=== PATIENT | male | born 1980 | race Caucasian/White ===

== ENCOUNTER 2021-01-05 08:00 | Outpatient (RCR) | payer MEDICARE, SELFPAY | END 2021-03-08 23:59 | LOC: IMMUN 08:00 | PROVIDERS: Referring Provider Family Medicine; Visit Provider Family Medicine | DX: Z23 Encounter for immunization (principal) | CPT/HCPCS: 0001A; 0002A; 91300 ==

== ENCOUNTER 2022-02-28 08:10 | Emergency (ER) | payer MEDICAID, SELFPAY ==
[2022-02-28 08:11] VITALS: BP 148/92; PULSE 97; RESP 15; TEMP 36.4; O2SAT 98; BMI 23.5
[2022-02-28 08:30] VITALS: RESP 16
--- NOTE | 2022-02-28 08:34 | EDS_ITS ---
HPI HPI - GI History of Present Illness Chief Complaint: Abd Pain Informant: patient Narrative Narrative: Patient presents for evaluation reported reducible inguinal hernia. On and off for the past year more frequent. Last time was 2 days ago states he is able to reduce this. He states he was walking when he noted this at times was on the lawn more for prolonged period time will noted the bulge. No nausea or vomiting. Normal bowel movements. Has never seen a physician or specialist for this. Denies any significant past medical history. On Zyrtec daily. No surgeries in the past. Prior similar symptoms: Yes PFSH PFSH Medical History no medical history Home Medications cetirizine [Zyrtec] 5 mg PO DAILY 02/28/22 [History Last Taken Unknown] Allergy/AdvReac Type Severity Reaction Status Date / Time No Known Allergies Allergy Verified 02/28/22 08:12 Family History no significant family his Surgical History no surgical history Social History Smoking Status: Never smoker ROS ROS ED Constitutional Constitutional ED: Denies chills, fever(s) or sweats Eyes Eyes: Denies change in vision ENT ENT ED: Denies dysphagia or sore throat Cardiovascular Cardiovascular: Denies chest pain, leg edema, palpitations or racing heartbeat Respiratory/Chest Respiratory/Chest: Denies cough, dyspnea or dyspnea on exertion Gastrointestinal Gastrointestinal: Reports other Details: Hernia ; Denies abdominal pain, diarrh ea, nausea or vomiting Genitourinary Genitourinary ED: Denies dysuria, hematuria or urinary frequency Musculoskeletal Musculoskeletal: Denies back pain, extremity pain or neck pain Integumentary Denies rash or wounds Neurologic Neurologic: Denies headache(s), paresthesias or weakness EXAM Physical Exam Const Vital Signs: 02/28/22 08:11 Temperature 97.5 F L Temperature Source Temporal Pulse Rate 97 Respiratory Rate 15 Blood Pressure 148/92 H Blood Pressure Mean 110 Pulse Ox 98 Oxygen Delivery Method Room Air Positive well nourished and well developed General Appearance ED: well developed and NAD HEENT Reports moist mucous membranes normocephalic and atraumatic Eyes PERRL, EOMs intact bilaterally and conjunctivae normal General Eye ED: Yes normal appearance of both eyes Neck no lymphadenopathy and supple General: Negative for tenderness Chest Wall Chest: Negative for tenderness Resp normal respiratory effort and normal air movement Effort and Inspection: symmetric chest movement; Negative for respiratory distress Cardio regular rate, regular rhythm and no murmurs Peripheral Pulses: pulses 2+ throughout GI normal to inspection, nondistended, normoactive bowel sounds and non-tender Palpation: Negative for guarding or rebound tenderness present Narrative: Nontender testicles, there is defect noted on left inguinal canal. No current bulging or tenderness. Back/Spine no CVA tenderness and no thoracic nor lumbar tenderness Extremity normal to inspection General Extremety ED: Negative for edema or tenderness General Extremity: Negative for edema Neuro oriented x3 and no sensory deficits noted Sensorium / Orientation: awake and alert Skin no rashes or lesions noted and no wounds MDM MDM MDM Narrative Medical decision making narrative: Patient history exam concerns for reducible inguinal hernia. Does not have any symptoms currently. Discussed avoiding heavy lifting not more than 10 pounds. Discussed to continue to reduce if reoccurs if he is unable to he needs to come immediately to the ED. Otherwise he is given follow-up with surgery as an outpatient. All questions were answered. Discharge Plan Triage Chief Complaint: Abd Pain ED Provider: Liam Mello Dx/Rx/DC Orders Clinical Impression: Reducible inguinal hernia Instructions: What Is a Hernia?, ED Hernia (Adult) Prescriptions: No Action cetirizine [Zyrtec] 5 mg Tablet 5 mg PO DAILY RF: 0 Primary Care Provider: Care Physician,No Primary Referrals: Breonna Almodovar MD [STAFF PHYSICIAN] - 1 Week Care Physician,No Primary [Primary Care Provider] - Activity Restrictions/Additional Instructions: You have a indirect inguinal hernia on the left side that is reducible. Follow- up with surgery for discussion of definitive treatment as an outpatient. Return if worsening symptoms and unable to reduce. Disposition Disposition: Home, Self Care
== END 2022-02-28 08:40 | disposition home or self-care (01) ==
LOC: ED 08:38
PROVIDERS: Emergency Provider Emergency Medicine; Visit Provider Emergency Medicine
DX: K40.90 Unilateral inguinal hernia, without obstruction or gangrene, not specified as recurrent (principal)
CPT/HCPCS: 99282

== ENCOUNTER 2022-03-14 10:32 | Day surgery (SDC) | payer MEDICAID, SELFPAY ==
[2022-03-14 11:07] VITALS: BP 118/86; PULSE 79; RESP 18; TEMP 36.6; O2SAT 100; BMI 20.9
--- NOTE | 2022-03-14 11:07 | PCM.HP.BLA ---
History and Physical Date of Admission: 03/14/22 Date of Service: 03/02/22 MR#:[id number]:[id number]: CUCO MORGANNRep #:[id number] Provider:Kyle Contreras/Sex: 41/M [facility] [place]WSAStatus:Signed Intake Vital Signs 03/02/22 08:42 Height 5 ft 7 in Weight: 131 lb 4 oz BMI 20.5 BP 114/80 Blood Pressure Location Rt brachial Position Sitting Respiration 18 Pulse 84 Pulse Source Monitor Temp 97.4 F L Temp Source Temporal Pulse Oximetry (%) 99 Oxygen Delivery Method room air Intake Visit Reasons: ED 02/28 INGUINAL HERNIA Chief Complaint: Left inguinal hernia 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 Accompanied by: Father Is patient in pain?: No Allergies No Known Allergies Allergy (Verified 03/02/22 08:43) Medications cetirizine 5 mg tablet 5 mg PO DAILY 03/02/22 [History Confirmed 03/02/22] PFSH Medical History (Updated 03/02/22 @ 08:41 by Jesica Quarles) Reducible inguinal hernia Surgical History (Updated 03/02/22 @ 08:42 by Jesica Quarles) Hx of thumb surgery Family History (Updated 03/02/22 @ 08:44 by Jesica Quarles) Father Heart disease Hypertension High cholesterol Cancer skin cancer Social History (Updated 03/02/22 @ 08:42 by Jesica Quarles) Smoking Status: Never smoker alcohol intake: never substance use type: does not use HPI HPI HPI: CUCO MORGAN, is a 41 M who presents to the office today for left inguinal hernia. Pt states he has had it for about 1 year, but in the last 2 weeks he has need to reduce it more often- about 6 times. Pt c/o pain/discomfort at left groin with lifting on occasion. Pt denies any abd surgery. ROS General General: No weight change, appetite, fatigue, colon cancer or breast cancer HEENT HEENT: No difficulty swallowing, eye injury, eye surgery, swollen glands or hoarseness Endo Endocrine: No thyroid disease, diabetes mellitus, thyroid cancer, Hair loss, heat intolerance or cold intolerance Skin Skin: No rash or changing moles Musc Musculoskeletal: No back problems, arthritis, rheumatoid arthritis, gout or joint pain Cardio Cardiovascular: No murmur, pacemaker, heart disease, atrial fibrillation, high blood pressure, heart attack, heart stent, palpitations, shortness of breat with exertion or chest pain Psych Psychiatric: No depression, anxiety or hearing voices Resp Respiratory: No shortness of breath, No sleep apnea, No cough, No COPD, No asthma, No emphysema and No wheezing Gastro Gastrointestinal: No abdominal pain, No nausea or vomiting, No diarrhea, No constipation, No blood in stool, No acid reflux, No hemorrhoids, No ulcers, No gallbladder problem and No black,tarry stools Terell Hematologic: No blood thinners, No blood disorders, No bleeding, No anemia and No blood clots Neuro Neurologic: No abnormal speech and No confusion Exam Const General: cooperative, healthy appearing, comfortable and no acute distress Neck Neck: normal visual inspection Resp Effort & Inspection: normal respiratory effort Cardio Rate: regular rate GI Inspection: non-distended Palpation: soft, no guarding, hernia (left inguinal on exam-reducible, no hernia on right inguinal) and nontender Skin General: no rashes or lesions noted Neuro General: patient oriented x3 Psych Affect: normal affect Assessment and Plan Assessment and Plan (1) Reducible inguinal hernia: Status: Acute Comment: Left Plan - Dr. Breonna Almodovar MD: Plan to do a laparoscopic left inguinal hernia repair with mesh. Reviewed the procedure with the patient including the risks, including but not limited to infection, bleeding, paresthesia, chronic pain, injury to small bowel or contents of the spermatic cord, and recurrence. All questions were answered. Coding Level of Care Code Off vis,new,level 3 Diagnoses Reducible inguinal hernia K40.90 03/06/222017<Electronically signed by Breonna Almodovar MD>Date Breonna Almodovar MD
[2022-03-14] MEDS: Lactated Ringers 1,000 ML 15 ML IV (11:15)
[2022-03-14] MEDS: Cefazolin 2 GM in 0.9% Normal Saline 100 ML IV (12:04)
[2022-03-14] MEDS: Bupivacaine Mpf 0.5% 30 ML VIAL (13:25)
--- NOTE | 2022-03-14 13:25 | OP.PCM_ITS ---
Report of Operation Date of Procedure: 03/14/22 Pre-Operative Diagnosis: Left inguinal hernia Post-Operative Diagnosis: Left direct inguinal hernia Surgery/Procedure Performed:: Laparoscopic left inguinal hernia repair with mesh Surgeon: Breonna Almodovar web content director: Barbara Mock Type of Anesthesia: General/Supplemental Anesthesiologist: Tomy Mckeon Special Medications: Ancef 2 g IV x1 Specimen's removed: None Estimated Blood Loss (mL): < 10 cc Description of Procedure: Indications: 41-year-old male presented with left inguinal hernia which was symptomatic. Laparoscopic left inguinal hernia repair with mesh was elected patient was agreeable. Description of procedure: Patient was brought to operating room placed supine operative table. Timeout was completed verifying correct patient, procedure, site, positioning, special, prior to beginning procedure. General anesthesia was induced. Mcdonald catheter was placed. Patient's arms were tucked and padded appropriately. Midline supraumbilical incision was made with a 15 blade scalpel. The fascia was elevated and incised. Entry into the abdomen was confirmed visually. The Suero trocar was placed. Laparoscope was placed. Verifying no injury during initial trocar placement. Patient was placed in Trendelenburg position. Two 5 mm trochars were placed lateral to the rectus sheath under direct visualization. Both the inguinal regions were inspected and left direct hernia was seen; no hernia seen on the right. The median umbilical ligament was divided sharply with electrocautery. Peritoneum was incised with the endoscopic scissors along a line 2 cm above the superior edge of the hernia defect extending from the median umbilical ligament to anterior superior iliac spine. Peritoneal flap was mobilized inferiorly using blunt and sharp dissection. The inferior epigastric vessels were exposed and symphysis pubis and identified. Checo's ligament was identified. Dissection was continued inferiorly to the iliopubic track with care taken to avoid injury to the femoral branch of the genitofemoral nerve and lateral femoral cutaneous nerve. The cord structures were parietalized. The indirect hernia sac was noted and mobilized from the cord structures and reduced into the peritoneal cavity. A medium size Bard 3D max mesh left was used. The mesh was rolled longitudinally into a compact cylinder and passed through the trocar. The cylinder was placed along the inferior aspect of the working space and unrolled into place to completely cover the direct, indirect and femoral spaces. The mesh was secured in place medially to Checo's ligament using the pro- tacker and secure strap to the anterior abdominal wall as well as to the anterior abdominal wall. Care was taken to avoid the inferolateral triangle containing iliac vessels and genital nerves. After ensuring adequate hemostasis, the trochars were removed and pneumoperitoneum allowed to escape. The supraumbilical trocar incision was closed with a 0 Vicryl figure of 8 suture. The skin was closed with 4-0 Monocryl interrupted sutures and Steri-Strips. Patient's testicles are also confirmed in the scrotum bilaterally. Patient tolerated procedure well was taken to the postanesthesia care unit in stable condition. Grafts/Implants Used: Left medium Bard 3D max lot [id number] Complications none
--- NOTE | 2022-03-14 13:29 | EX.PCM.DISCH ---
Discharge Instructions Diet Discharge Diet: Light diet - advance as tolerated Activity Discharge Activity: May Not Drive (while taking narcotic pain medications.) May shower in (days): 1 Lifting Restrictions: no lifting >20 lbs x 2 wks, no strenuous exercise for 4 wks Dressing / Incision Call your doctor if your incision/area has: Continuous Slow Oozing, Sudden Increased Bleeding, Increased Pain/ Swelling, Increased Redness, Foul Smelling Discharge and Swelling at the incision site Call your doctor if you observe: Fever of 101 or Higher Remove Dressing in: 2 days Cleanse incision/area with: Soap & Water Additional Dressing/Incision Instructions:: Steri-Strips will fall off in 7 to 10 days, if they do not fall off okay to remove after 10 days. Recommend scrotal support for 1 to 2 weeks, boxer briefs or briefs versus boxers. Follow Up Care Please Follow Up With: Breonna Almodovar MD When: Call the office for a follow-up appointment 2 weeks; after 5 PM and on the weekends call [phone] with any concerns. Test Results: Test results from this visit will be discussed in further detail at your follow-up appointment, if applicable. Discharge Plan Admission Attending Provider: Breonna Almodovar Primary Care Provider: Care Physician,Aurelia Primary Discharge Orders/Prescriptions Prescriptions: New hydrocodone-acetaminophen 5-325 mg tablet 1 - 2 tab PO Q6H PRN (Reason: pain) 3 Days Qty: 15 RF: 0 Continued Zyrtec 10 mg Capsule 10 mg PO DAILY RF: 0 Referrals / Follow Up: Care Physician,No Primary [Primary Care Provider] - Disposition Disposition (needs filled in before D/C Order can be placed): Home, Self Care
[2022-03-14 13:40] VITALS: BP 118/86; PULSE 73; RESP 16; TEMP 36.3; O2SAT 95
[2022-03-14 13:45] VITALS: BP 112/81; BP 118/86; PULSE 66; RESP 16; O2SAT 96
[2022-03-14 14:00] VITALS: BP 103/69; BP 118/86; PULSE 56; RESP 16; O2SAT 97
[2022-03-14 14:15] VITALS: BP 102/75; BP 118/86; PULSE 61; RESP 16; TEMP 36.6; O2SAT 99
[2022-03-14] MEDS: HYDROcodone Bitartrate/Apap 5/325 Tablet PO (14:50)
[2022-03-14 15:15] VITALS: BP 102/68; BP 118/86; PULSE 78; RESP 16; TEMP 36.7; O2SAT 99
== END 2022-03-14 15:28 | disposition home or self-care (01) ==
LOC: SDC 10:33 → AC 10:42
PROVIDERS: Referring Provider Surgery; Visit Provider Surgery
PROC: (CPT 49650; principal; 2022-03-14 11:40)
DX: K40.90 Unilateral inguinal hernia, without obstruction or gangrene, not specified as recurrent (principal)
CPT/HCPCS: 49650; 00750; J7120; C1781; J2405

== ENCOUNTER → 2022-03-16 | Outpatient (CLI) | payer MEDICAID, SELFPAY ==
--- NOTE | 2022-03-16 16:13 | CT_ITS ---
INDICATION: LEFT LOWER QUADRANT PAIN EXAMINATION: CT Abdomen And Pelvis W/ Contrast Injection TECHNIQUE: Helically acquired images were obtained of the abdomen and pelvis after IV contrast. A radiation dose optimization technique was used for this scan. IV Contrast dosage and agent: Oral and amp; IV Gastrografin and amp; 100mL [id number]-370 Oral contrast: None. COMPARISON: None. FINDINGS: Visualized lung bases: Unremarkable Liver: Unremarkable Gallbladder: Unremarkable Spleen: Unremarkable Pancreas: Unremarkable Adrenal Glands: Unremarkable Kidneys: Unremarkable Vasculature: Unremarkable GI Tract: Postoperative changes status post left inguinal hernia repair. There is residual fluid within the left inguinal canal. There is pneumoperitoneum. Mild circumferential rectal wall thickening. Lymphadenopathy: None Peritoneum: No ascites. Bladder: BANEGAS catheter in place. Reproductive organs: The prostate is moderately enlarged. Bones/Soft tissues: No suspicious osseous or soft tissue lesions CT/Abdomen/Pelvis WITH Contrast IMPRESSION: Postoperative changes status post left inguinal hernia repair with pneumoperitoneum and residual fluid within the left inguinal canal. Consider short-term follow-up scan to document resolution of free air. Mild circumferential rectal wall thickening. This could represent proctitis in the correct clinical setting. Moderate prostatomegaly. Correlate with PSA levels. Electronically Signed: Hector Rebolledo MD at 19:54 EDT ,
== END | disposition home or self-care (01) ==
LOC: CT 16:10
PROVIDERS: Visit Provider Surgery
DX: R10.32 Left lower quadrant pain (principal); N40.0 Benign prostatic hyperplasia without lower urinary tract symptoms
CPT/HCPCS: 74177; Q9967

== ENCOUNTER 2022-08-18 08:01 | Day surgery (SDC) | payer BC, MEDICAID, SELFPAY ==
[2022-08-18] VITALS (9 sets, daily range): BP systolic 98–124; BP diastolic 59–85; PULSE 71–85; RESP 16–18; TEMP 36.3–36.8; O2SAT 96–100; BMI 21.7
[2022-08-18] MEDS: Lactated Ringers 1,000 ML 15 ML IV (08:20)
--- NOTE | 2022-08-18 08:34 | HP.PCM_ITS ---
History and Physical Date of Admission: 08/18/22 Date of Service:? 08/04/22 MR#: [id number] Acct: [id number] Name:CUCO RAYMOND Rep #: [id number] : 1980 ? ? Provider: Dr. Breonna Almodovar MD Age/Sex:? 42/M ? ? Location: [facility] Status: Signed Intake Vital Signs ? 08/04/2209:20 BP 148/83 H Blood Pressure Location Rt brachial Position Sitting Respiration 16 Pulse 82 Pulse Source Monitor Temp 97.5 F L Temp Source Temporal Pulse Oximetry (%) 99 Oxygen Delivery Method room air Intake Visit Reasons:?PAIN AT HERNIA SURGERY SITE Chief Complaint: Right groin pain Regulator Tester Required: No Is patient in pain?: No Allergies No Known Allergies Allergy (Verified 08/04/22 09:22) Medications cetirizine 10 mg capsule (Zyrtec) 10 mg PO DAILY 03/07/22 [History Confirmed 08/04/22] PFSH Medical History?(Updated 08/04/22 @ 11:[address] Breonna Almodovar MD) Non-smoker Reducible inguinal hernia Surgical History?(Updated 08/04/22 @ 11:[address] Breonna Almodovar MD) History of inguinal hernia repair Hx of thumb surgery Family History? Father Heart disease Hypertension High cholesterol Cancer ?? ? skin cancer Social History? Smoking Status:? Never smoker alcohol intake:? never substance use type:? does not use HPI HPI HPI: 42-year-old male presents due to right inguinal pain/bulge.? Patient states about a month ago he noticed right groin pain/bulge.? Patient did just recently have a left laparoscopic inguinal hernia with mesh repair in March 2022.? Patient states his right groin pain is worse with sneezing nor heavy lifting or towards the end of the day.? Patient does report feeling starting of a bulge. ROS General General: No weight change, appetite, fatigue, colon cancer, breast cancer or weakness HEENT HEENT: No difficulty swallowing, eye injury, eye surgery, swollen glands or hoarseness Endo Endocrine: No thyroid disease, diabetes mellitus, thyroid cancer, Hair loss, heat intolerance or cold intolerance Skin Skin: No rash or changing moles Musc Musculoskeletal: No back problems, arthritis, rheumatoid arthritis, gout or joint pain Cardio Cardiovascular: No murmur, pacemaker, heart disease, atrial fibrillation, high blood pressure, heart attack, heart stent, palpitations, shortness of breat with exertion or chest pain Psych Psychiatric: No depression, anxiety or hearing voices Resp Respiratory: No shortness of breath, No sleep apnea, No cough, No COPD, No asthma, No emphysema and No wheezing Gastro Gastrointestinal: No abdominal pain, No nausea or vomiting, No diarrhea, No constipation, No blood in stool, No acid reflux, No hemorrhoids, No ulcers, No gallbladder problem and No black,tarry stools Etrell Hematologic: No blood thinners, No blood disorders, No bleeding, No anemia and No blood clots Neuro Neurologic: No system reviewed and no additional complaints, except as documented, No as per HPI, No abnormal gait, No abnormal hearing, No abnormal movements, No abnormal speech, No behavioral changes, No burning sensations, No confusion, No convulsions, No disequilibrium, No dizziness, No localized weakness, No frequent falls, No headache(s), No lack of coordination, No loss of vision, No memory loss, No numbness, No other visual disturbances, No radicular pain, No restless legs, No sensory deficit, No syncope, No tingling, No t remor(s), No weakness and No other Exam Const General: cooperative, healthy appearing and no acute distress [facility] Head: normal to inspection Resp Effort & Inspection: normal respiratory effort Cardio Rate: regular rate GI Inspection: non-distended Palpation: soft, no guarding, no hernias and nontender Other: Left inguinal region no hernia on exam-- postoperative seroma from March resolved Right inguinal region hernia on exam self reduces, tenderness palpation Skin General: no rashes or lesions noted Neuro General: patient oriented x3 Extrem General: no clubbing, cyanosis or edema Psych Affect: normal affect Assessment and Plan Assessment and Plan (1) Right inguinal hernia: ?Status:?Acute (2) History of inguinal hernia repair: ?Status:?Acute ?Comment: laparoscopic left--03/14/22 Plan Patient previously did not have any discomfort in the right groin or hernia seen at time of laparoscopic left inguinal hernia repair.? Patient states the pain started about a month ago and he does feel starting of a bulge.? There is a bulge on exam on the right as well.? No issues on the left. Plan to do a laparoscopic right inguinal hernia repair with mesh. Reviewed the procedure with the patient including the risks, including but not limited to infection, bleeding, paresthesia, chronic pain, injury to small bowel or contents of the spermatic cord, and recurrence. All questions were answered. Breonna Almodovar M.D. Pager: [phone] [facility] [address] [place] [address], [address] [place] [address] Office: [phone] Coding Level of Care Code Off vis,est,level 4 Diagnoses Right inguinal hernia? K40.90 History of inguinal hernia repair? Z98.890; Z87.19 08/07/22 1243 <Electronically signed by Breonna Almodovar MD> Date Breonna Almodovar MD
[2022-08-18] MEDS: Cefazolin 2 GM in 0.9% Normal Saline 100 ML IV (10:20)
[2022-08-18] MEDS: Bupivacaine 0.25% 30 ML Vial (11:37)
--- NOTE | 2022-08-18 11:37 | OP.PCM_ITS ---
Report of Operation Date of Procedure: 08/18/22 Pre-Operative Diagnosis: right inguinal hernia Post-Operative Diagnosis: same Surgeon: Breonna Almodovar construction specialist: Fabiola Hillman Anesthesiologist: Pako Willis Special Medications: Ancef 2 grams IV x1 Specimen's removed: none Estimated Blood Loss (mL): minimal Description of Procedure: Description of procedure: Patient was brought to operating room placed supine operative table.? Timeout was completed verifying correct patient, procedure, site, positioning, special, prior to beginning procedure.? General anesthesia was induced.? Patient's arms were tucked and padded appropriately. Midline supraumbilical incision was made with a 15 blade scalpel.? The fascia was elevated and incised.? Entry into the abdomen was confirmed visually.? The Suero trocar was placed.? Laparoscope was placed.? Verifying no injury during initial trocar placement.? Patient was placed in Trendelenburg position.? Two 5 mm trochars were placed lateral to the rectus sheath under direct visualization.? Both the inguinal regions were inspected and right direct hernia was seen; no hernia seen on the left. The median umbilical ligament was divided sharply with electrocautery.? Peritoneum was incised with the endoscopic scissors along a line 2 cm above the superior edge of the hernia defect extending from the median umbilical ligament to anterior superior iliac spine.? Peritoneal flap was mobilized inferiorly using blunt and sharp dissection- direct hernia and preperitoneal lipoma was removed.? The inferior epigastric vessels were exposed and symphysis pubis and identified.? Checo's ligament was identified.? Dissection was continued inferiorly to the iliopubic tract with care taken to avoid injury to the femoral branch of the genitofemoral nerve and lateral femoral cutaneous nerve.? The no indirect hernia sac was noted and peritoneal flap was mobilized from the cord structures and reduced into the peritoneal cavity.? A medium size Bard 3D max mesh right was used.? The mesh was rolled longitudinally into a compact cylinder and passed through the trocar.? The cylinder was placed along the inferior aspect of the working space and unrolled into place to completely cover the direct, indirect and femoral spaces.? The mesh was secured in place medially to Checo's ligament and to the anterior abdominal wall using the Securestrap.? Care was taken to avoid the inferolateral triangle containing iliac vessels and genital nerves.? After ensuring adequate hemostasis, the trochars were removed and pneumoperitoneum allowed to escape.? The supraumbilical trocar incision was closed with a 0 Vicryl figure of eight suture.? The skin was closed with 4-0 Monocryl interrupted sutures and Steri-Strips.? Patient's testicles are also confirmed in the scrotum bilaterally. Patient tolerated procedure well was taken to the postanesthesia care unit in stable condition. Grafts/Implants Used: Right medium Bard 3D max lot [id number]
--- NOTE | 2022-08-18 11:51 | DCINST_ITS ---
Discharge Instructions Diet Discharge Diet: Light diet - advance as tolerated Activity Discharge Activity: May Not Drive (while taking narcotic pain medications.) May shower in (days): 1 Lifting Restrictions: no lifting >20 lbs x 2 wks, no strenuous exercise for 4 wks Dressing / Incision Call your doctor if your incision/area has: Continuous Slow Oozing, Sudden Increased Bleeding, Increased Pain/ Swelling, Increased Redness, Foul Smelling Discharge and Swelling at the incision site Call your doctor if you observe: Fever of 101 or Higher Remove Dressing in: 2 days Cleanse incision/area with: Soap & Water Additional Dressing/Incision Instructions:: Steri-Strips will fall off in 7 to 10 days, if they do not fall off okay to remove after 10 days. Follow Up Care Please Follow Up With: Breonna Almodovar MD When: Call the office for a follow-up appointment 2 weeks; after 5 PM and on the weekends call [phone] with any concerns. Test Results: Test results from this visit will be discussed in further detail at your follow- up appointment, if applicable. Discharge Plan Admission Attending Provider: Breonna Almodovar Primary Care Provider: Care PhysicianAurelia Primary Instructions Additional Instructions / Restrictions: Okay to take ibuprofen 400-600 mg PO q6hr PRN along with the Percocet. Avoid Tylenol since there is already Tylenol in the Percocet. Take all pain meds with food. Percocet can cause constipation recommend taking daily stool softener (i.e. Colace/docusate) while taking the pain meds. Recommend starting some MiraLAX tomorrow if no bowel movement. If still no bowel movement following day recommend taking additional laxatives/MiraLAX or Dulcolax Discharge Orders/Prescriptions Prescriptions: New oxycodone-acetaminophen 5-325 mg tablet 1 - 2 tab PO Q6H PRN (Reason: pain) 3 Days Qty: 14 0RF Continued Zyrtec 10 mg Capsule 10 mg PO DAILY Referrals / Follow Up: Care PhysicianAurelia Primary [Primary Care Provider] - Disposition Disposition (needs filled in before D/C Order can be placed): Home, Self Care
[2022-08-18] MEDS: oxyCODONE 5 MG Tablet PO ×2 (13:19→14:03)
[2022-08-18] MEDS: Acetaminophen 325 MG Tablet PO ×2 (13:19→14:04)
--- NOTE | 2022-08-18 15:15 | SUR.PHASEII ---
PT VOIDED 450, BLADDER SCANNED FOR NOTHING. OK PER DR NELSON TO D/ C
== END 2022-08-18 15:16 | disposition home or self-care (01) ==
LOC: SDC 08:03 → AC 08:04
PROVIDERS: Visit Provider Surgery
PROC: (CPT 49650; principal; 2022-08-18 09:15)
DX: K40.90 Unilateral inguinal hernia, without obstruction or gangrene, not specified as recurrent (principal)
CPT/HCPCS: 49650; 00840; J7120; C1781; J2405

== ENCOUNTER 2024-12-01 05:47 | Emergency (ER) | payer OTHER, BC, SELFPAY ==
[2024-12-01 05:48] VITALS: BP 141/77; PULSE 70; RESP 18; TEMP 36.4; O2SAT 100; BMI 26.6
--- NOTE | 2024-12-01 06:12 | RAD_ITS ---
PROCEDURE: LUMBAR SPINE 2 OR 3 VIEWS REASON FOR EXAM: Pain TECHNIQUE: 3 view(s) of the lumbar spine COMPARISON: None. FINDINGS: 5 [id number] lumbar vertebral type bodies. No fracture or malalignment. Some straightening of the lordosis may represent degree of spasm or positioning. Disc spaces appear within limits. RAD/Lumbar Spine 2 or 3 Views IMPRESSION: No fracture or malalignment. Some straightening of the lordosis may represent degree of spasm or positioning.. Reading Location: [id number]
--- NOTE | 2024-12-01 06:19 | EDS_ITS ---
HPI History of Present Illness Chief Complaint: Back Narrative Narrative: Recurrent back pain rating down his right leg this morning. August work injury stepping down ladder second step. Pain in his back rating down his leg. He went through occupational health with restrictions he went through physical therapy was cleared back to work a month ago. While at work this past started noting mild right lower back pain again. Today walking down 1 step he felt sharp pain similar to August however this is worsened. No loss of bowel or bladder control. No medications taken. Denies any allergies. Denies history of gastric ulcers or kidney injury. Prior similar symptoms: Yes PFSH [facility] Medical History Strain of muscle, fascia and tendon of lower back, sequela Non-smoker Reducible inguinal hernia Home Medications ?Medication ?Instructions ?Recorded ?Last Taken ?Type diazepam 5 mg tablet 5 mg PO Q8 PRN Muscle Spasm #20 12/01/24 Unknown Rx tabs hydrocodone-acetaminophen 5-325mg 1 tab PO Q6H PRN PRN Pain 3 days 12/01/24 Unknown Rx 5mg-325mg #12 TABLETS ibuprofen 600 mg tablet 600 mg PO Q6H PRN PRN pain # 20 12/01/24 Unknown Rx TABLETS prednisone 20 mg tablet 60 mg (3 x 20 mg) PO DAILY # 15 12/01/24 Unknown Rx TABLETS Allergy/AdvReac Type Severity Reaction Status Date / Time No Known Allergies Allergy Verified 12/01/24 05:49 Family History Father Heart disease Hypertension High cholesterol Cancer skin cancer Surgical History History of right inguinal hernia repair History of inguinal hernia repair Hx of thumb surgery Social History Smoking Status: Never smoker alcohol intake: never substance use type: does not use ROS ROS ED Constitutional Constitutional ED: Denies chills, fever(s) or sweats ENT ENT ED: Denies sore throat Cardiovascular Cardiovascular: Denies chest pain, leg edema, palpitations or racing heartbeat Respiratory/Chest Respiratory/Chest: Denies cough, dyspnea or dyspnea on exertion Gastrointestinal Gastrointestinal: Denies abdominal pain, diarrhea, nausea or vomiting Genitourinary Genitourinary ED: Denies dysuria, hematuria or urinary frequency Musculoskeletal Musculoskeletal: Reports back pain; Denies extremity pain or neck pain Integumentary Denies rash or wounds Neurologic Neurologic: Denies headache(s), paresthesias or weakness EXAM Physical Exam Const Vital Signs: 12/01/24 05:48 Temperature 97.6 F L Temperature Source Oral Pulse Rate 70 Respiratory Rate 18 Blood Pressure 141/77 H Blood Pressure Mean 98 Pulse Ox 100 Oxygen Delivery Method Room Air Positive well nourished and well developed General Appearance ED: well developed and NAD HEENT Reports moist mucous membranes normocephalic and atraumatic Eyes General Eye ED: Yes normal appearance of both eyes Neck full ROM Chest Wall Chest: Negative for tenderness Resp normal respiratory effort and normal air movement Effort and Inspection: symmetric chest movement; Negative for respiratory distress Cardio regular rate, regular rhythm and no murmurs Peripheral Pulses: pulses 2+ throughout GI normal to inspection, nondistended, normoactive bowel sounds and non-tender Palpation: Negative for guarding or rebound tenderness present Back/Spine Back/Spine Narrative: Tender palpation midline L5-S1. Straight leg test was negative bilaterally. 1+ patellar reflex bilaterally. Extremity normal to inspection General Extremety ED: Negative for edema or tenderness General Extremity: Negative for edema Neuro oriented x3 and no sensory deficits noted Sensorium / Orientation: awake and alert Skin no rashes or lesions noted and no wounds MDM MDM MDM Narrative Medical decision making narrative: Interventions / MDM: Differential diagnosis: Lumbar radiculopathy, back pain Diagnosis considered but do not suspect: No cauda equina symptoms My EKG interpretation: N/A Imaging independently reviewed and interpreted by myself: 3 view LS spine x-ray: No fracture normal disc spacing. External documents reviewed: N/A Test considered but not ordered:N/A ED course: Patient recurrent back pain some August he states no images have been performed. Therefore 3 view x-ray lumbar spine ordered. He is ordered for Toradol volume morphine for symptom control. 0718: Symptoms much more controlled x-ray negative. Discussed lumbar radiculopathy. Will ambulate in the department. Will provide prescriptions for symptom control. Appropriate work restrictions given. Occupational health follow-up. All questions were answered. Re-evaluation: stable Disposition discussed with patient/family/significant other: Patient Case discussed with consulting clinician: N/A This note was generated with [employer] dictation software. It may contain incorrect words, spelling, and punctuation that were not noted in checking the note before signing. Radiography Diagnostic Testing: Clinical Impression(s) from Imaging Studies Lumbar Spine X-Ray 12/01/24 06:12 IMPRESSION: No fracture or malalignment. Some straightening of the lordosis may represent degree of spasm or positioning.. Reading Location: [facility] Discharge Plan Triage Chief Complaint: Back ED Provider: Liam Mello Dx/Rx/DC Orders Clinical Impression: Lumbar radiculopathy, right, Back pain Instructions: ED Sciatica Prescriptions: New diazepam 5 mg tablet 5 mg PO Q8 PRN (Reason: Muscle Spasm) Qty: 20 0RF prednisone 20 mg tablet 60 mg PO DAILY Qty: 15 0RF ibuprofen 600 mg tablet 600 mg PO Q6H PRN PRN (Reason: pain) Qty: 20 0RF hydrocodone-acetaminophen 5-325 mg tablet 1 tab PO Q6H PRN PRN (Reason: Pain) 3 Days Qty: 12 0RF Primary Care Provider: Care Physician,No Primary Referrals: [facility] [Outside] Care Physician,No Primary [Primary Care Provider] - Activity Restrictions/Additional Instructions: Lumbar x-ray negative. Continue medications prescribed. Work restrictions as given to you. Follow-up with your occupational health. Print Language: Greek Disposition Disposition: Home, Self Care
[2024-12-01] MEDS: Morphine 4 MG/ML Syringe IM (06:21)
[2024-12-01] MEDS: Ketorolac 30 MG/ML Syringe IM (06:21)
[2024-12-01] MEDS: diazePAM 5 MG Tablet PO (06:22)
--- NOTE | 2024-12-01 07:21 | ED.RN ---
Patient ambulated down hallway without problems.
[2024-12-01 07:32] VITALS: BP 141/77; PULSE 70; RESP 18; TEMP 36.4; O2SAT 100
== END 2024-12-01 07:32 | disposition home or self-care (01) ==
PROVIDERS: Emergency Provider Emergency Medicine; Visit Provider Emergency Medicine
DX: M54.16 Radiculopathy, lumbar region (principal); X58.XXXA Exposure to other specified factors, initial encounter
CPT/HCPCS: 72100; 96372; 99282